=== PATIENT | female | born 1975 | race Caucasian/White ===

== ENCOUNTER → 2021-11-17 | Outpatient (CLI) | payer OTHER ==
--- NOTE | 2021-11-17 09:00 | RAD ---
INDICATION: Reason: OVERACTIVE BLADDER, URINARY FREQUENCY / Spl. Instructions: / History: COMPARISON: None. TECHNIQUE: Grayscale and color ultrasound images obtained of the bilateral kidneys and bladder. FINDINGS: Right Kidney: 90 mm. Left Kidney: 94 mm. No hydronephrosis bilaterally. Bladder: Prevoid 99 cc without significant post void residual. Right jet not seen. Left jet seen. IMPRESSION: * No hydronephrosis bilaterally. Electronically signed by: Sunny Kirby MD (11/17/2021 8:58 AM) [id number]
== END ==
LOC: US 07:51
PROVIDERS: ATTEND Physician Assistant Medical
DX: N32.81 Overactive bladder (principal); R35.0 Frequency of micturition; R10.2 Pelvic and perineal pain
CPT/HCPCS: 76770